=== PATIENT | male | born 1965 | race African-American/Black ===

== ENCOUNTER 2022-06-28 21:30 | Emergency (ER) | payer SELFPAY ==
[~2022-06-28] VITALS: Ht 182.9 cm; Wt 90.0 kg
[2022-06-28] MEDS ORDERED: BACITRACIN ZINC OINT UDPKT TOP ONE (22:30)
[2022-06-28] MEDS ORDERED: SODIUM CHLORIDE 0.9% 1,000 ML IV ONE (22:30)
[2022-06-28] MEDS ORDERED: TETANUS, DIPHTHERIA, PERTUSSIS VAC/PF 0.5ML (>10YR OLD) IM ONE (22:30)
[2022-06-28 23:20] LABS: BASOPHILS % 0.6 % (0.0-2.0); EOSINOPHILS % 0.2 % (0.0-5.0); HEMATOCRIT. 42.3 % (42.0-52.0); HEMOGLOBIN. 14.1 g/dL (14.0-18.0); LYMPHOCYTES % 25.7 % (20.0-50.0); MEAN CORPUSCULAR HEMOGLOBIN 32.8 pg (28.0-32.0); MEAN CORPUSCULAR VOLUME 98.1 fL (80.0-94.0); MEAN PLATELET VOLUME 7.7 fl (7.4-10.4); MONOCYTES % 8.9 % (2.0-8.0); NEUTROPHILS % 64.6 % (40.0-76.0); PLATELET 217 x1000/uL (130-400); RED BLOOD CELL COUNT 4.31 mill/uL (4.7-6.1); RED CELL DISTRIBUTION WIDTH 15.6 % (11.6-14.6)
[2022-06-28 23:30] LABS: CHLORIDE 106 mEq/L (98-107)
[2022-06-28 23:35] LABS: ETHANOL BLOOD 278 mg/dL
[2022-06-29] MEDS ORDERED: TETANUS, DIPHTHERIA, PERTUSSIS VAC/PF 0.5ML (>10YR OLD) IM ONE (00:15)
[2022-06-29 02:08] VITALS: BP 136/80
== END 2022-06-29 05:47 | disposition home or self-care (01) ==
LOC: ER 21:30
DX: F10.129 Alcohol abuse with intoxication, unspecified (principal); S01.01XA Laceration without foreign body of scalp, initial encounter; W18.30XA Fall on same level, unspecified, initial encounter; Y93.89 Activity, other specified; Y92.89 Other specified places as the place of occurrence of the external cause; Y99.8 Other external cause status; Y90.8 Blood alcohol level of 240 mg/100 ml or more
CPT/HCPCS: 12001; 36415; 70450; 72125; 73030; 80053; 80320; 85025; 85610; 90471; 90715; 96360; 96361; 99285; J7030; Z7610; L0172; G0480